=== PATIENT | female | born 1970 ===

== ENCOUNTER 2017-03-30 12:09 | Emergency (ER) | payer BC ==
--- NOTE | 2017-03-30 12:41 | C.PDOC ---
History Of Present Illness 03/30/2017 Pt is a 46 year old female who presents to the emergency department complaining of right ankle pain and left lower back pain after a mechanical fall. Patient reports yesterday night she was going down the stairs when she missed a step. She notes twisting her ankle when she fell. She states she has not taken any medication for pain relief. Patient did not hit their head and denies any loss of consciousness. Patient denies headache, chest pain, shortness of breath, neck pain, or other complaints. PMD: Dr. Conroy Time Seen by Provider: 03/30/17 12:26 Chief Complaint (Nursing): Lower Extremity Problem/Injury History Per: Patient History/Exam Limitations: no limitations Onset/Duration Of Symptoms: Other (yesterday night) - Ankle/Foot Description Of Injury: Fell, Twisted (ankle) Currently Unable To: Bend Or Move (plantar flexion) Past Medical History Reviewed: Historical Data, Nursing Documentation, Vital Signs Vital Signs: Last Vital Signs Temp 97.8 F 03/30/17 14:57 Pulse 84 03/30/17 14:57 Resp 20 03/30/17 14:57 BP 117/78 03/30/17 14:57 Pulse Ox 97 03/30/17 14:57 - Medical History PMH: No Chronic Diseases Family History: States: Other Other Family History: Alzheimers - Social History Hx Tobacco Use: No Hx Alcohol Use: No Hx Substance Use: No - Immunization History Hx Tetanus Toxoid Vaccination: No Hx Influenza Vaccination: No Hx Pneumococcal Vaccination: No Review Of Systems Constitutional: Negative for: Fever Cardiovascular: Negative for: Chest Pain Respiratory: Negative for: Shortness of Breath Musculoskeletal: Positive for: Back Pain (lower back pain), Other (ankle pain). Negative for: Neck Pain Neurological: Negative for: Dizziness Physical Exam - Physical Exam Appears: Well, Non-toxic, No Acute Distress Skin: Normal Color, Warm, Dry Head: Atraumatic, Normacephalic Eye(s): bilateral: Normal Inspection, EOMI Ear(s): Bilateral: Normal Nose: Normal Lips: Normal Appearing Teeth: Normal Dentition Throat: Normal Neck: Normal, Normal ROM, No Midline Cervical Tenderness Lymphatic: Deferred Chest: Symmetrical, No Tenderness Cardiovascular: Rhythm Regular Respiratory: Normal Breath Sounds Gastrointestinal/Abdominal: Normal Exam, Bowel Sounds, Soft, No Tenderness Back: Paraspinal Tenderness (tenderness left paralumbar region) Extremity: Tenderness (right lateral malleolus with some swelling), No Deformity , Swelling Pulses: Left Dorsalis Pedis: Normal, Right Dorsalis Pedis: Normal Neurological/Psych: Oriented x3, Normal Speech, Normal Motor, Normal Sensation ED Course And Treatment O2 Sat by Pulse Oximetry: 100 (room air) Pulse Ox Interpretation: Normal Medical Decision Making Medical Decision Makin03/30/2017 Initial impression: Ankle pain s/p fall; low back pain s/p fall Initial plan: -- Lumbar spine x-ray -- Right ankle x-ray -- Toradol -- Reassess and disposition Progress Notes: Pt feels better. Will d/c home. Will give crutches to promote faster healing of her ankle sprain. Disposition Counseled Patient/Family Regarding: Studies Performed, Diagnosis, Need For Followup, Rx Given - Disposition Referrals: [employer] Sami Yanez [Outside] Michael Yusuf MD [Staff Provider] - Disposition: HOME/ ROUTINE Disposition Time: 14:16 Condition: IMPROVED Additional Instructions: Ms. Cordova, thank you for letting us take care of you today. Return to the ER if your symptoms worsen, or if any problems. Apply a cold pack to the ankle as needed for additional comfort. Try to avoid bearing weight on the ankle; use crutches for next several days. You need to follow up with an orthopedic doctor (Dr. Jiang). Please call Dr. Jiang's office at the phone number listed below to make an appointment for next week. Prescriptions: Ibuprofen [Motrin] 1 tab PO Q8 PRN #30 tab PRN Reason: Pain, Moderate (4-7) Instructions: Ankle Sprain (ED), Crutch Instructions (ED), Contusion in Adults (ED), Fall Prevention (ED) Forms: Gen Discharge Inst Malaysian, happin! (Malaysian) Print Language: SINHALA - POA Present On Arrival: None - Clinical Impression Clinical Impression: Right ankle sprain, Fall (on) (from) other stairs and steps, initial encounter , Lumbar contusion - Scribe Statement The provider has reviewed the documentation as recorded by the Scribe 03/30/2017 Scribe Attestation: Neva Parikh MD Scribe Attestation: All medical record entries made by the Scribe were at my direction and personally dictated by me. I have reviewed the chart and agree that the record accurately reflects my personal performance of the history, physical exam, medical decision making, and the department course for this patient. I have also personally directed, reviewed, and agree with the discharge instructions and disposition.
[2017-03-30 14:57] VITALS: BP 117/78; PULSE 84; RESP 20; TEMP 97.8
--- NOTE | 2017-03-30 15:43 | RAD ---
PROCEDURE: Radiographs of the Lumbar Spine. HISTORY: Fell down stairs and c/o left low back pain COMPARISON: No prior. FINDINGS: BONES: Normal alignment. No listhesis. No fracture. DISC SPACES: Unremarkable. OTHER FINDINGS: None. IMPRESSION: Unremarkable radiographs of the lumbar spine.
--- NOTE | 2017-03-30 15:48 | RAD ---
PROCEDURE: Right Ankle Radiographs. HISTORY: Fell down stairs and twisted right ankle COMPARISON: None FINDINGS: BONES: Normal. No fracture. JOINTS: Normal. No osteoarthritis. Ankle mortise maintained. Talar dome intact SOFT TISSUES: Normal. OTHER FINDINGS: None. IMPRESSION: Normal right ankle radiographs.
[2017-03-30 16:33] VITALS: O2SAT 100
== END 2017-03-30 14:55 | disposition home or self-care (01) ==
LOC: C.ER 12:09
DX: S93.401A Sprain of unspecified ligament of right ankle, initial encounter (principal); S30.0XXA Contusion of lower back and pelvis, initial encounter; W10.9XXA Fall (on) (from) unspecified stairs and steps, initial encounter
CPT/HCPCS: 72100; 73610; 96372; 99284; J1885

== ENCOUNTER 2017-04-24 06:52 | Emergency (ER) | payer BC ==
[2017-04-24 07:02] VITALS: RESP 18; O2SAT 100
[2017-04-24 08:52] LABS: RBC URINE 7 /hpf (0-3); URINE BILIRUBIN NEGATIVE (NEGATIVE); URINE COLOR Colorless (YELLOW); URINE GLUCOSE (UA) NORMAL (Normal); URINE KETONE NEGATIVE (NEGATIVE); URINE LEUKOCYTE ESTERASE NEG Leu/uL (Negative); URINE PROTEIN NEGATIVE (NEGATIVE); URINE UROBILINOGEN NORMAL mg/dL (0.2-1.0); WBC URINE 3 /hpf (0-5)
[2017-04-24 08:54] LABS: URINE BLOOD 1+ (NEGATIVE)
--- NOTE | 2017-04-24 09:11 | C.PDOC ---
History Of Present Illness Patient presents to ED c/o feeling dizziness described as room spinning around her, associated with nausea for the past several days. Currently, symptoms are mild but she states they were worse yesterday. Patient has not seen PMD for symptoms. She denies fever, visual changes, slurred speech, facial droop, extremity weakness, sensory changes, headache. Time Seen by Provider: 04/24/17 07:26 Chief Complaint (Nursing): Medical Clearance History Per: Patient History/Exam Limitations: no limitations Onset/Duration Of Symptoms: Days Current Symptoms Are (Timing): Better Severity: Mild Past Medical History Reviewed: Historical Data, Nursing Documentation, Vital Signs Vital Signs: Last Vital Signs Temp 97.9 F 04/24/17 06:59 Pulse 71 04/24/17 06:59 Resp 18 04/24/17 06:59 BP 102/65 04/24/17 06:59 Pulse Ox 100 04/24/17 09:11 - Medical History PMH: No Chronic Diseases Family History: States: No Known Family Hx - Social History Hx Tobacco Use: No Hx Alcohol Use: No Hx Substance Use: No - Immunization History Hx Tetanus Toxoid Vaccination: No Hx Influenza Vaccination: No Hx Pneumococcal Vaccination: No Review Of Systems Except As Marked, All Systems Reviewed And Found Negative. Constitutional: Negative for: Fever, Chills Cardiovascular: Negative for: Chest Pain, Palpitations Respiratory: Negative for: Shortness of Breath Gastrointestinal: Positive for: Nausea. Negative for: Vomiting, Abdominal Pain , Diarrhea Skin: Negative for: Rash Neurological: Negative for: Weakness, Numbness, Altered Mental Status, Headache , Dizziness Physical Exam - Physical Exam Appears: Well, Non-toxic, No Acute Distress Skin: Normal Color, Warm, Dry, No Rash Eye(s): bilateral: Normal Inspection, PERRL, EOMI Oral Mucosa: Moist Cardiovascular: Rhythm Regular Respiratory: Normal Breath Sounds, No Rales, No Rhonchi, No Wheezing Gastrointestinal/Abdominal: Normal Exam, Bowel Sounds, Soft, No Tenderness Extremity: Normal ROM, No Pedal Edema Neurological/Psych: Oriented x3, Normal Speech, Normal Cognition Gait: Steady ED Course And Treatment O2 Sat by Pulse Oximetry: 100 (RA) Pulse Ox Interpretation: Normal Progress Note: Accucheck and UA, Upreg ordered and reviewed. Patient given PO meclizine and zofran. Reevaluation Time: 09:10 Reassessment Condition: Improved (On reassessment, patient states she feels better, dizziness has resolved. Patient is well appearing, with normal vitals, and ambulating normally in the ED. Rx for meclizine given, and patient instructed to follow up with PMD in 1-2 days. She understands she should return to ED if symtpoms worsen.) Disposition Counseled Patient/Family Regarding: Studies Performed, Diagnosis, Need For Followup, Rx Given - Disposition Referrals: Lane Esquivel MD [Medical Doctor] - Disposition: HOME/ ROUTINE Disposition Time: 09:10 Condition: STABLE Additional Instructions: SEGUIMIENTO CON HUNTER MDICO EN 1-2 ELAINE USE MEDICAMENTOS PARA EL DOLOR JERROD SEA NECESARIO DEVUELVA A LA ELANA DE EMERGENCIA SI LOS SNTOMAS EMPEORARAN Prescriptions: Meclizine [Meclizine*] 25 mg PO Q6 #20 tab Instructions: Benign Paroxysmal Positional Vertigo (ED) Forms: [employer] (Polish) Print Language: GAMBIAN - POA Present On Arrival: None - Clinical Impression Clinical Impression: Peripheral vertigo
[2017-04-24 09:41] VITALS: BP 101/68; PULSE 69; TEMP 98.4
== END 2017-04-24 09:35 | disposition home or self-care (01) ==
LOC: C.ER 06:52
DX: H81.399 Other peripheral vertigo, unspecified ear (principal)